=== PATIENT | female | born 1950 | race Caucasian/White ===

== ENCOUNTER 2019-01-28 11:08 | Inpatient (IN) | payer MEDICARE ==
[~2019-01-28] VITALS: Ht 162.6 cm; Wt 77.1 kg
[2019-01-28 11:10] VITALS: BP 133/87
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
[2019-01-28] MEDS ORDERED: Morphine Sulfate 4mg/ml Inj (IV USE ONLY) IV ONE (12:15)
[2019-01-28] MEDS ORDERED: Tetanus/Diptheria/Pertussis IM ONE (12:15)
[2019-01-28] MEDS ORDERED: Neosporin Oint Ud Pkt TOP ONE (12:15)
[2019-01-28 13:00] VITALS: BP 127/71
--- NOTE | 2019-01-28 13:00 | NUR ---
ED Nurse Note: pt lying in bed comfortably. still c/o pain on right hand.
[2019-01-28 13:19] LABS: HEMATOCRIT 36.4 % (37.0-47.0); HEMOGLOBIN 11.5 G/DL (12.0-16.0); MEAN CORPUSCULAR VOLUME 73 FL (80-99); PLATELET COUNT 471 K/UL (150-450); RED BLOOD COUNT 4.97 M/UL (4.20-5.40); RED CELL DISTRIBUTION WIDTH 16.5 % (11.6-14.8)
[2019-01-28 13:26] LABS: INR 0.9 (0.9-1.1)
[2019-01-28 13:30] LABS: WHITE BLOOD COUNT 25.1 K/UL (4.8-10.8)
[2019-01-28 13:37] LABS: ANION GAP 13 mmol/L (5-15); BLOOD UREA NITROGEN 10 mg/dL (7-18); CALCIUM 9.2 MG/DL (8.5-10.1); CARBON DIOXIDE 22 MMOL/L (21-32); CHLORIDE 104 MMOL/L (98-107); CREATININE 1.1 MG/DL (0.55-1.30); SODIUM 139 MMOL/L (136-145)
[2019-01-28 13:43] LABS: ALANINE AMINOTRANSFERASE 18 U/L (12-78); ALBUMIN 3.9 G/DL (3.4-5.0); ALKALINE PHOSPHATASE 147 U/L (46-116); ASPARTATE AMINO TRANSFERASE 17 U/L (15-37); BILIRUBIN,TOTAL 0.4 MG/DL (0.2-1.0)
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
[2019-01-28] MEDS ORDERED: HYDROmorphone 1mg/ml Carpuject IVP ONE (14:00)
[2019-01-28 15:00] VITALS: BP 101/78
--- NOTE | 2019-01-28 15:30 | NUR ---
ED Nurse Note: pt c/o pain and wants more pain meds. Dr. Dalal notified.
[2019-01-28] MEDS ORDERED: Hydromorphone 0.5mg/0.5ml inj IVP ONE (15:45)
[2019-01-28 16:10] VITALS: BP 73/54
--- NOTE | 2019-01-28 16:10 | NUR ---
ED Nurse Note: pt c/o light headache and SOB after getting pain meds while using bedside commode. Dr. Dalal notified. low bp noted on portable machine. will give IV bolus.
[2019-01-28] MEDS ORDERED: Miralax 17gm pkt ORAL PRN (16:15)
[2019-01-28] MEDS ORDERED: Zolpidem 5mg tab ORAL PRN (16:15)
[2019-01-28] MEDS ORDERED: Morphine Sulfate 2mg/ml Inj(IV/IM USE ONLY) IVP PRN (16:15)
[2019-01-28 16:24] LABS: APPEARANCE,URINE CLEAR; BILIRUBIN, URINE NEGATIVE (NEGATIVE); COLOR,URINE PALE YELLOW; GLUCOSE, URINE (UA) 3+ (NEGATIVE); KETONES,URINE NEGATIVE (NEGATIVE); LEUKOCYTE ESTERASE ,URINE 1+ (NEGATIVE); NITRITE,URINE NEGATIVE (NEGATIVE); PH,URINE 7 (4.5-8.0); PROTEIN,URINE NEGATIVE (NEGATIVE); UROBILINOGEN,URINE NORMAL MG/DL (0.0-1.0)
[2019-01-28 16:30] VITALS: BP 98/64
--- NOTE | 2019-01-28 16:30 | NUR ---
ED Nurse Note: urine sample sent.
--- NOTE | 2019-01-28 16:40 | NUR ---
ED Nurse Note: bp increased to >90 and per pt, feels better.
[2019-01-28] MEDS ORDERED: ROXICODONE15 MG ORAL (16:53)
--- NOTE | 2019-01-28 17:28 | NUR ---
ED Nurse Note: Reports given to DENISE Sherman.
[2019-01-28 18:15] VITALS: BP 138/91
--- NOTE | 2019-01-28 18:15 | NUR ---
NURSE NOTES: Patient transferred from ED, and received report from Sandra/RN. Patient awake and alert, AO x4, Patient is complaining of pain. Vitals signs are stable. Belonging check done. Heart monitor in place. IV on left AC 20 gauge, Patent, no bleeding or infiltration note. Bed in low position and locked, Call light within reach. Will continue plan of care.
--- NOTE | 2019-01-28 19:21 | History & Physical ---
History and Physical History & Physicial Dictated for Int Med-Dr Lynne no. [id number]. Munir Anthony MD Jan 28, 2019 19:21
--- NOTE | 2019-01-28 19:45 | NUR ---
HAND-OFF: Report given to Lily/RN, no acute distress noted, in stable condition. Endorsed plan of care.
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
[2019-01-28] MEDS: Morphine Sulfate 4mg/ml Inj (IV USE ONLY) IVP PRN (20:51)
[2019-01-28] MEDS: Heparin 5000 units/ml inj SUBQ SCH (20:53)
[2019-01-28] MEDS: D5 1/2NS 1,000 ML IV SCH (21:03)
[2019-01-28] MEDS: LORazepam Inj 2mg/ml 1ml IV PRN (22:26)
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
[2019-01-29] MEDS: Morphine Sulfate 4mg/ml Inj (IV USE ONLY) IVP PRN ×6 (01:22→22:20)
[2019-01-29] MEDS: LORazepam Inj 2mg/ml 1ml IV PRN ×6 (05:17→23:52)
--- NOTE | 2019-01-29 07:04 | NUR ---
HAND-OFF: Report given to DENISE Campuzano.Patient sleeping.
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
[2019-01-29 08:00] VITALS: BP 126/72
[2019-01-29] MEDS: Morphine Sulfate 2mg/ml Inj(IV/IM USE ONLY) IVP PRN ×5 (08:10→23:57)
[2019-01-29] MEDS: Heparin 5000 units/ml inj SUBQ SCH ×2 (08:14→20:30)
[2019-01-29 08:17] LABS: BASOPHILS % (AUTO) 1.1 % (0.0-2.0); EOSINOPHILS % (AUTO) 0.5 % (0.0-3.0); HEMATOCRIT 28.4 % (37.0-47.0); LYMPHOCYTES % (AUTO) 35.3 % (20.0-45.0); MEAN CORPUSCULAR VOLUME 73 FL (80-99); MONOCYTES % (AUTO) 12.3 % (1.0-10.0); NEUTROPHILS % (AUTO) 50.8 % (45.0-75.0); PLATELET COUNT 346 K/UL (150-450); RED BLOOD COUNT 3.88 M/UL (4.20-5.40); RED CELL DISTRIBUTION WIDTH 16.6 % (11.6-14.8); WHITE BLOOD COUNT 9.3 K/UL (4.8-10.8)
[2019-01-29 08:44] LABS: ALANINE AMINOTRANSFERASE 12 U/L (12-78); ALBUMIN/GLOBULIN RATIO 0.9 (1.0-2.7); ALKALINE PHOSPHATASE 122 U/L (46-116); ANION GAP 10 mmol/L (5-15); ASPARTATE AMINO TRANSFERASE 13 U/L (15-37); BILIRUBIN,TOTAL 0.7 MG/DL (0.2-1.0); BLOOD UREA NITROGEN 13 mg/dL (7-18); CALCIUM 8.2 MG/DL (8.5-10.1); CARBON DIOXIDE 22 MMOL/L (21-32); CHLORIDE 106 MMOL/L (98-107); CREATININE 0.9 MG/DL (0.55-1.30); SODIUM 138 MMOL/L (136-145)
[2019-01-29 12:00] VITALS: BP 120/66
[2019-01-29] MEDS: D5 1/2NS 1,000 ML IV SCH (12:27)
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
--- NOTE | 2019-01-29 17:46 | Diagnostic Imaging Report ---
Indication: Forearm painPain Findings: 2 views of the right forearm were obtained. Fractures of the metacarpals again noted. Refer to the hand series. No other acute fractures, malalignment, erosions or periostitis are identified. . Bones are osteopenic Soft tissues are unremarkable. Impression: Negative for acute injury
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
--- NOTE | 2019-01-29 17:46 | Diagnostic Imaging Report ---
Indication: Right hand pain Findings: 3 views of the right hand were obtained. Acute fractures of the mid shafts of the second third, fourth, fifth metacarpal is demonstrated. Irregularity of the hamate and capitate noted and these may be fractured as well. Soft tissue swelling noted. Bones are diffusely osteopenic. Impression: Multiple acute second through fifth metacarpal fractures. Possible fractures of the capitate and hamate.
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
--- NOTE | 2019-01-29 19:40 | NUR ---
NURSE NOTES: Received pt from DENISE Hines. Pt awake, alert, and c/o pain. Bruising noted accross her stomach. also admitted at bedside. Pt very anxious and requesting for someone to come sit with her. Call light within reach. Bed in lowest position. Will continue to monitor.
--- NOTE | 2019-01-29 19:44 | NUR ---
HAND-OFF: Report given to DENISE Palomo.
[2019-01-29 20:00] VITALS: BP 126/83
--- NOTE | 2019-01-29 23:12 | NUR ---
NURSE NOTES: Called and left a message with Dr. Lynne regarding pts request for dilaudid instead of morphine and for an increase in the dosage and frequency of ativan. Awaiting call back. Pt still very anxious and pressing the call light frequently. at bedside. Will continue to monitor.
[2019-01-30] VITALS: BP 183/98
--- NOTE | 2019-01-30 00:50 | NUR ---
NURSE NOTES: Called and left a message with Dr. Lynne regarding pt SBP. Awaiting call back.
[2019-01-30] MEDS: Morphine Sulfate 4mg/ml Inj (IV USE ONLY) IVP PRN (02:28)
[2019-01-30] MEDS: LORazepam Inj 2mg/ml 1ml IV PRN ×4 (03:06→21:25)
[2019-01-30 03:15] VITALS: BP 127/79
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
--- NOTE | 2019-01-30 07:48 | NUR ---
HAND-OFF: Report given to DENISE Anderson. Endorsed m/s order.
[2019-01-30 08:00] VITALS: BP 122/71
--- NOTE | 2019-01-30 08:02 | NUR ---
NURSE NOTES: Received report from DENISE Palomo. Patient in bed resting, no active s/s cardiac, respiratory distress noticed at this time. Patient c/o hand pain 5/10, cast on right hand, cap refill <3 sec, able to move, AO x4, forgetful, ST with HR 112, patient on room air. IV on left hand 22G, asymptomatic, patent, intact. Endorsed OB stool collected. Bed in lowest position ,side rails upx3, call light within reach. Will continue to monitor.
[2019-01-30 08:08] LABS: INR 0.9 (0.9-1.1)
[2019-01-30] MEDS: Heparin 5000 units/ml inj SUBQ SCH ×2 (08:17→20:06)
--- NOTE | 2019-01-30 08:45 | NUR ---
NURSE NOTES: Report received from Monica WALKER. Patient transferred from 216-2 to 320-1 in stable condition. Patient sleeping, easily arousable, right lateral. Right arm cast in place, skin warm, wiggles, capillary refill <3 seconds. LH heplock, intact. Call light in reach, bed in lowest position, will continue to monitor.
[2019-01-30 08:46] LABS: ALANINE AMINOTRANSFERASE 19 U/L (12-78); ALBUMIN 3.4 G/DL (3.4-5.0); ALBUMIN/GLOBULIN RATIO 0.9 (1.0-2.7); ALKALINE PHOSPHATASE 140 U/L (46-116); ANION GAP 15 mmol/L (5-15); ASPARTATE AMINO TRANSFERASE 25 U/L (15-37); BILIRUBIN,TOTAL 0.6 MG/DL (0.2-1.0); BLOOD UREA NITROGEN 13 mg/dL (7-18); CALCIUM 8.8 MG/DL (8.5-10.1); CARBON DIOXIDE 18 MMOL/L (21-32); CHLORIDE 104 MMOL/L (98-107); CREATININE 0.8 MG/DL (0.55-1.30); LACTATE DEHYDROGENASE 416 U/L (81-234); PHOSPHORUS 3.5 MG/DL (2.5-4.9); POTASSIUM 4.4 MMOL/L (3.5-5.1); SODIUM 137 MMOL/L (136-145)
--- NOTE | 2019-01-30 08:54 | NUR ---
TRANSFER TO FLOOR: Patient transferred to 3E, per Dr. Crisostomo. Report given to DENISE Weinstein. Belongings and medications given to DENISE Weinstein. Family and or S/O informed of transfer.
[2019-01-30] MEDS ORDERED: Heparin 5000 units/ml inj SUBQ SCH ×2 (09:00)
[2019-01-30 09:17] LABS: % IRON SATURATION 9 % (15-50); IRON 32 ug/dL (50-175); TOTAL IRON BINDING CAPACITY 354 ug/dL (250-450)
[2019-01-30 10:11] LABS: BASOPHILS % (AUTO) 0.6 % (0.0-2.0); HEMATOCRIT 28.4 % (37.0-47.0); MEAN CORPUSCULAR VOLUME 74 FL (80-99); MONOCYTES % (AUTO) 8.6 % (1.0-10.0); NEUTROPHILS % (AUTO) 58.9 % (45.0-75.0); PLATELET COUNT 332 K/UL (150-450); RED BLOOD COUNT 3.85 M/UL (4.20-5.40); RED CELL DISTRIBUTION WIDTH 16.4 % (11.6-14.8)
[2019-01-30] MEDS ORDERED: LORazepam Inj 2mg/ml 1ml IV PRN ×2 (10:45)
--- NOTE | 2019-01-30 13:33 | NUR ---
P.T NOTE: P.T EVALUATION COMPLETED AND TREATMENT INITIATED . PLEASE REFER TO P.T EVALUATION FOR CURRENT FUNCTIONAL STATUS. PATIENT IS ALERT, O X 4, APPEARED FATIGUED HOWEVER COOPERATIVE DESPITE BEING ANXIOUS. PATIENT REPORTS C/O PAIN ON L RIB CAGE AND ABDOMEN AGGRAVATED BY MOVEMENT INITIATION, CERTAIN POSITIONING, SNEEZING AND COUGHING AFFECTING HER OVERALL FUNCTIONAL MOBILITY INDEPENDENCE AND SAFETY. PATIENT CURRENTLY REQUIRE MIN A X 1 FOR BED MOBILITY, TRANSFERS AND GAIT/AMBULATION ACTIVITIES USING THE PLATFORM WALKER DUE TO R HAND CAST IN PLACE. SKILLED P.T SERVICE IS WARRANTED TO IMPROVE FUNCTIONAL MOBILITY INDEPENDENCE AND SAFETY. RECOMMEND SNF FOR SHORT REHAB VS HOME WITH P.T. AT D/C.
[2019-01-30 16:00] VITALS: BP 103/61
[2019-01-30] MEDS ORDERED: Zolpidem 5mg tab ORAL PRN ×2 (16:15)
[2019-01-30] MEDS ORDERED: Miralax 17gm pkt ORAL PRN ×3 (16:15)
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
--- NOTE | 2019-01-30 19:30 | NUR ---
HAND-OFF: Report given to Harvey WALKER.
--- NOTE | 2019-01-30 19:45 | NUR ---
NURSE NOTES: Pt lying in bed w/bed in lowest position and call light within reach. Pt A&Ox4, forgetful and severely anxious. IV site intact/asymptomatic & H/L'd; skin intact and hand splint intact. Will continue to monitor.
[2019-01-30 20:00] VITALS: BP 147/92
[2019-01-30] MEDS ORDERED: Sucralfate 1gm tab ORAL PRN (20:00)
[2019-01-31] VITALS: BP 100/60
[2019-01-31 04:00] VITALS: BP 141/72
[2019-01-31] MEDS: LORazepam Inj 2mg/ml 1ml IV PRN ×3 (04:17→21:05)
--- NOTE | 2019-01-31 07:20 | NUR ---
NURSE NOTES: Report received from Harvey WALKER, rounds made. Patient sleeping, right lateral position. No distress noted on RA. LFA heplock in place. Right arm cast on, will assess CMS. Call light in reach, bed in lowest position, will continue to monitor.
--- NOTE | 2019-01-31 07:29 | NUR ---
HAND-OFF: Report given to DENISE Weinstein.
[2019-01-31 08:00] VITALS: BP 139/78
[2019-01-31 08:43] LABS: BASOPHILS % (AUTO) 0.9 % (0.0-2.0); EOSINOPHILS % (AUTO) 3.3 % (0.0-3.0); HEMATOCRIT 28.1 % (37.0-47.0); LYMPHOCYTES % (AUTO) 41.5 % (20.0-45.0); MEAN CORPUSCULAR VOLUME 73 FL (80-99); MONOCYTES % (AUTO) 9.7 % (1.0-10.0); NEUTROPHILS % (AUTO) 44.6 % (45.0-75.0); PLATELET COUNT 328 K/UL (150-450); RED BLOOD COUNT 3.86 M/UL (4.20-5.40); RED CELL DISTRIBUTION WIDTH 16.4 % (11.6-14.8); WHITE BLOOD COUNT 11.4 K/UL (4.8-10.8)
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
[2019-01-31] MEDS: Heparin 5000 units/ml inj SUBQ SCH ×2 (08:48→20:30)
[2019-01-31 09:09] LABS: ANION GAP 12 mmol/L (5-15); BLOOD UREA NITROGEN 13 mg/dL (7-18); CALCIUM 8.5 MG/DL (8.5-10.1); CARBON DIOXIDE 21 MMOL/L (21-32); CHLORIDE 106 MMOL/L (98-107); CREATININE 0.8 MG/DL (0.55-1.30); POTASSIUM 4.2 MMOL/L (3.5-5.1); SODIUM 139 MMOL/L (136-145)
--- NOTE | 2019-01-31 09:30 | NUR ---
NURSE NOTES: Patient presses call light multiple times, needs addressed by all staff members. Patient will continue to press call light or yell out for assistance, even right after stepping out of the patient's room and assisting/addressing a question or concern. Patient c/o of pain and heartburn, see eMAR, will continue to monitor.
[2019-01-31 12:00] VITALS: BP 139/79
--- NOTE | 2019-01-31 12:30 | NUR ---
NURSE NOTES: Patient ambulatory with PT in halls with RW. Gait steady/slow. Up to chair. Activity tolerance fair to good. Transfers with x1 assist, slow from bed to BSC. Patient requires simple step by step instructions, follows verbal command. Will continue to monitor.
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
--- NOTE | 2019-01-31 15:15 | NUR ---
NURSE NOTES: LFA heplock leaking and bleeding with flushing. Multiple failed attempts for new IV site. Dr. Crisostomo notified that we are having a difficult time finding IV access, orders for okay to use feet for IV start. Able to obtain IV access to right breast at this time, will continue monitor.
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
[2019-01-31 16:18] VITALS: BP 162/108
--- NOTE | 2019-01-31 18:00 | NUR ---
NURSE NOTES: Patient with history of chronic pain syndrome. Requesting her home pain medication Oxycontin 20 mg QID and Percocet 10/325 mg QID for breakthrough pain. Message left for Dr. Crisostomo to reconcile medication profile and pain management, awaiting call back.
--- NOTE | 2019-01-31 19:35 | NUR ---
HAND-OFF: Report given to Lea WALKER. Addendum: 01/31/19 at 2020 by Corinna Calhoun RN Endorsed to Lea WALKER that still waiting dog control officer back from Dr. Crisostomo regarding pain medication reconciliation.
[2019-01-31 20:00] VITALS: BP 145/78
--- NOTE | 2019-01-31 20:05 | NUR ---
NURSE NOTES: Received patient in bed, awake, alert, oriented, able to make her needs known, on room air, able to use bedside comode, RN encourages and promotes independence with ADL's. VSS, afebrile, call light is within reach, bed is locked low, alarm is on. Will continue to monitor for safety and comfort.
[2019-02-01] VITALS (7 sets, daily range): BP systolic 123–160; BP diastolic 78–110
[2019-02-01] MEDS: Zolpidem 5mg tab ORAL PRN (00:02)
[2019-02-01] MEDS: LORazepam Inj 2mg/ml 1ml IV PRN ×5 (02:29→22:04)
--- NOTE | 2019-02-01 06:55 | NUR ---
HAND-OFF: Report given to Lilli WALKER.
--- NOTE | 2019-02-01 07:30 | NUR ---
NURSE NOTES: Patient is in bed asleep but arousable to verbal stimuli. Patient is stable. No facial grimacing or signs of discomfort noted. Patient is in bed in locked and lowest position with call light within reach. WIll continue to monitor.
--- NOTE | 2019-02-01 08:00 | NUR ---
NURSE NOTES: Patient is upset about not showering. RN offered to wash patient, patient refused and said that she wanted her private caregiver to wash her. RN offered patient supplies and washcloths, patient refused. RN spoke to patient's private caregiver and caregiver said he will give patient bath. Caregiver has all supplies. Caregiver gave patient a bed bath.
[2019-02-01] MEDS: Heparin 5000 units/ml inj SUBQ SCH ×2 (08:23→21:25)
--- NOTE | 2019-02-01 12:00 | NUR ---
NURSE NOTES: Patient refused to discharge. Dr. Crisostomo and director of case management notified.
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
--- NOTE | 2019-02-01 13:10 | NUR ---
NURSE NOTES: Patient refused physical therapy.
--- NOTE | 2019-02-01 14:00 | NUR ---
NURSE NOTES: Patient complains of severe pain and asks for dilaudid. RN administered pain medication as ordered. After patient received pain medication, patient asked RN for more pain medication. RN gave patient teaching about narcotic medications and the side effects. Patient does not verbalize understanding. Charge nurse notified. Charge nurse spoke to patient. Will continue to monitor.
--- NOTE | 2019-02-01 14:15 | NUR ---
*-* MEDICARE APPEAL *-* CASE MANAGEMENT HAS CALLED IN THE MEDICARE APPEAL ON BEHALF OF PATIENT MEDICARE APPEAL P:[phone]
--- NOTE | 2019-02-01 14:55 | NUR ---
[employer] NOTES PATIENT ACCEPTED BY [facility]
--- NOTE | 2019-02-01 15:25 | NUR ---
NURSE NOTES: Paged Dr. Crisostomo regarding patient's request for break through pain medication. Awaiting response.
[2019-02-01] MEDS: Ketorolac 30mg Inj IV PRN ×2 (16:31→22:58)
--- NOTE | 2019-02-01 16:55 | NUR ---
NURSE NOTES: Patient is upset and yelling at RN, "give me something for pain!" Patient is aware that she received breakthrough pain medication and yells for narcotic pain medication. Will administer pain medication as ordered.
--- NOTE | 2019-02-01 19:37 | NUR ---
HAND-OFF: Report given to Julio WALKER. Patient is stable.
--- NOTE | 2019-02-01 20:00 | NUR ---
NURSE NOTES: Patient in bed awake and oriented. VSS. No SOB noted. Patient given Dilaudid prn pain medication for 10/10 generalized body pain. After giving patient pain meds she's asking what's the next due pain meds and if I can give it to her. RN teaching done regarding pain medication administration. Needs attended. Cast on right hand intact. Call light within reach. Bed is locked and in low position. In stable condition.
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
[2019-02-02] VITALS: BP 135/81
[2019-02-02] MEDS: Zolpidem 5mg tab ORAL PRN (00:42)
[2019-02-02] MEDS: LORazepam Inj 2mg/ml 1ml IV PRN ×3 (02:51→12:33)
[2019-02-02 04:00] VITALS: BP 132/84
--- NOTE | 2019-02-02 07:30 | NUR ---
NURSE NOTES: Patient lying in bed sleeping. No signs and symptoms of pain or distress at this time. Right arm splint intact and dry. IV dressing intact and dry. Bed lowest position. Call light within reach. Will continue to monitor.
[2019-02-02 08:00] VITALS: BP 123/75
[2019-02-02] MEDS: Heparin 5000 units/ml inj SUBQ SCH (08:59)
[2019-02-02] MEDS: Ketorolac 30mg Inj IV PRN (11:22)
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
[2019-02-02 12:00] VITALS: BP 128/70
--- NOTE | 2019-02-02 12:44 | NUR ---
DISCHARGE PLANNING: NOTE CM UPDATED PATIENT ON DC PLAN PATIENT IS AGREEABLE TO BE DISCHARGED TO HOME W/ HH SHE REQUESTS TO DC TO HOME W/ [facility]ICALS FAXED.
--- NOTE | 2019-02-02 13:58 | NUR ---
NURSE NOTES: Patient and spouse claimed they live alone on 8th floor apartment and they don't have any person to help with transportation and assistance to get in the apartment once she get in the personal manager managed care will arrive. Pt. verbalized because of pain and broken arm patient claimed she need television production assistant the spouse also claimed he cant feel safe with out television production assistant if they transported to the apartment safe after that the manager managed care will help them. MD aware order received for BLS transportation. CM notified. both patient agreed to the plan.
--- NOTE | 2019-02-02 14:32 | Cardiology Report ---
APPROVED REPORT EKG Measurement Heart [id number] Sinus tachycardia Otherwise normal ECG
--- NOTE | 2019-02-02 15:40 | NUR ---
NURSE NOTES: Patient discharged with [facility] ([id number]) in stable condition. Discharge instruction give to patient and verbalized understanding. Instructed to follow up with MD and verbalized understanding. Belonging checked and given to patient. IV and ID removed.
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
--- NOTE | 2019-02-03 21:09 | Cardiology Report ---
APPROVED REPORT EKG Measurement Heart [id number] 142P [id number] Sinus tachycardia Right axis deviation Abnormal ECG
== END 2019-02-02 15:39 | disposition home health service (06) | DRG 563 ==
LOC: EDBD 11:08 → EMR 12:25 → 2E 13:51 → EDBEDREQ 15:37 → 2E 20:09 → 3E 01-30 08:56
DX: S62.300A Unspecified fracture of second metacarpal bone, right hand, initial encounter for closed fracture (principal); S62.302A Unspecified fracture of third metacarpal bone, right hand, initial encounter for closed fracture; S62.304A Unspecified fracture of fourth metacarpal bone, right hand, initial encounter for closed fracture; S62.306A Unspecified fracture of fifth metacarpal bone, right hand, initial encounter for closed fracture; S20.219A Contusion of unspecified front wall of thorax, initial encounter; V47.6XXA Car passenger injured in collision with fixed or stationary object in traffic accident, initial encounter; Y92.414 Local residential or business street as the place of occurrence of the external cause; Z88.1 Allergy status to other antibiotic agents; Z88.0 Allergy status to penicillin; Z88.2 Allergy status to sulfonamides; M79.641 Pain in right hand; M94.0 Chondrocostal junction syndrome [Tietze]; F41.9 Anxiety disorder, unspecified; G89.4 Chronic pain syndrome
CPT/HCPCS: 29125; 36415; 71250; 74176; 80048; 80053; 81001; 82270; 82378; 82607; 82746; 83540; 83550; 83615; 83735; 84100; 84443; 85007; 85025; 85044; 85060; 85610; 85651; 85730; 86140; 90471; 90715; 93005; 96361; 96374; 96375; 96376; 99285